=== PATIENT | male | born 1950 ===

== ENCOUNTER 2022-09-10 14:37 | Outpatient (REF) | payer MEDICARE, MEDICAID, SELFPAY ==
--- NOTE | 2022-09-10 16:31 | MHC.AU.HA1 ---
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 He lost his left Amite SP9 hearing aid and is currently using his older Oticon hearing aid as back up. He is hoping to upgrade his hearing aid technology and is interested in bluetooth compatibility to his iPhone. Hearing Aid Prescription: Based on the individual?s shared listening needs, communication environments, dexterity, desire for connectivity, and personal preferences, the following prescription for amplification has been made: Right ear: Make, Model, Color: Oticon Xceed 2 BTE UP Color: Steel [place] Battery Size: 675 Plush Brusher/Slim Tube: Type of Earmold/Dome/CShell/SlimTip: Microsonic M45 hypoallergenic shell Left ear: Left ear prescription to be same as Right Hearing Aid above: Make, Model, Color: Oticon Xceed 2 BTE UP Color: Steel [place] Battery Size: 675 Plush Brusher/Slim Tube: Type of Earmold/Dome/CShell/SlimTip: Microsonic M45 hypoallergenic shell Plan of Care: Patient wishes to purchase hearing aids as prescribed Action Taken/Action Needed:Earmold Impressions Taken Comments: Hearing Instrument Fitting to be scheduled when hearing aids arrive - will initially fit hearing aids with old ear molds to ensure fitting is within six months of hearing test (fitting needs to be scheduled by October 17, 2022). New earmolds will be fit upon arrival at a later date. Primary Diagnosis: H90.3 Bilateral Sensorineural Hearing Loss Signature: Provider: Cain Eaton, [facility]
== END 2022-09-10 14:38 | disposition home or self-care (01) ==
LOC: HO.HAP 14:37
PROVIDERS: Visit Provider Student in an Organized Health Care Education/Training Program
DX: Z46.1 Encounter for fitting and adjustment of hearing aid (principal); H90.3 Sensorineural hearing loss, bilateral
CPT/HCPCS: 92591; V5275

== ENCOUNTER 2022-09-24 09:38 | Outpatient (REF) | payer MEDICARE, MEDICAID, SELFPAY ==
--- NOTE | 2022-09-24 12:11 | MHC.AU.HA2 ---
Hearing Instrument Fitting- Adult- Binaural Date of Visit: 09/24/22 Hearing Instruments Dispensed: Right Ear: Make, Model, Color, Serial Number: Oticon Xceed 2 BTE UP SN: [id number]: Steel [place] Cleaner And Presser Repair Warranty: 10/10/2025 Cleaner And Presser Loss and Damage Warranty: 10/10/2025 [facility] Service Plan: 09/24/2023 Battery Size: 675 Earmold/Dome/CShell/SlimTip: Microsonic M45 hypoallergenic shell Left Ear: Make, Model, Color, Serial Number: Oticon Xceed 2 BTE UP [id number] Color: [place] Cleaner And Presser Repair Warranty: 10/10/2025 Cleaner And Presser Loss and Damage Warranty: 10/10/2025 [facility] Service Plan: 09/24/2023 Battery Size: 675 Earmold/Dome/CShell/SlimTip: Microsonic M45 hypoallergenic shell Summary of Fitting: Ran feedback chef kitchen manager and real ear measurements with old ear molds (still waiting for new molds to arrive). Appropriate match to target through 2 kHz. Decreased right hearing aid slightly due to vibration sensation at real-ear settings. Lv noted improvement in sound quality compared to his old hearing aids. Reviewed care and use. Paired to cell phone. Recommendations: Lv will be contacted to schedule an appointment when his new ear molds arrive; however, he was advised to call sooner if issues with his new hearing aids arise that cannot wait. Diagnosis Code(s): Primary Diagnosis: H90.3 Bilateral Sensorineural Hearing Loss Signature: Provider: Cain Eaton, [facility]
== END 2022-09-24 09:39 | disposition home or self-care (01) ==
LOC: HO.HAP 09:38
PROVIDERS: Visit Provider Student in an Organized Health Care Education/Training Program
DX: Z46.1 Encounter for fitting and adjustment of hearing aid (principal); H90.3 Sensorineural hearing loss, bilateral
CPT/HCPCS: V5011; V5020; V5160; V5261

== ENCOUNTER 2022-10-12 09:16 | Outpatient (REF) | payer MEDICARE, MEDICAID, SELFPAY ==
--- NOTE | 2022-10-12 09:57 | MHC.AU.HA3 ---
Hearing Instrument Follow-Up- Binaural Date of Visit: 10/12/22 Right Ear: Tony, Model, Color, Serial Number: Heriberto Xceed 2 BTE UP SN: [id number]: Steel [place] Junior Network Administrator Repair Warranty: 10/10/2025 Junior Network Administrator Loss and Damage Warranty: 10/10/2025 [facility] Service Plan: 09/24/2023 Battery Size: 675 Earmold/Dome/CShell/SlimTip:Microsonic Medi-padmini clear hypoallergenic shell Dispensed By: [facility] Date of Fittin09/24/2022 Left Ear: Tony, Model, Color, Serial Number: Otshiraz Xceed 2 BTE UP [id number] Color: Steel [place] Junior Network Administrator Repair Warranty: 10/10/2025 Junior Network Administrator Loss and Damage Warranty: 10/10/2025 [facility] Service Plan: 09/24/2023 Battery Size: 675 Earmold/Dome/CShell/SlimTip: Microsonic Medi-padmini clear hypoallergenic shell Dispensed By: [facility] Date of Fittin09/24/2022 Follow-Up Summary: Lv reported that overall his new hearing aids have been great. He is noticing significant improvement compared to his old hearing aids. It is easier for his to get his attention as well as understand conversations. He is also picking up more environmental sounds as well as sounds and voices on television. Data logging showed about 6 hours of use per day. Lv reported he sometimes needs breaks from the hearing aids due to the discomfort of his old ear molds and often likes to relax in silence. Fit new ear molds. Lv reported the ear molds felt smooth and comfortable. No feedback in office. Advised of warranty period if issues arise. Recommendations: Hearing instrument maintenance in 6 months, or sooner if needed. Please contact our clinic with any questions or concerns. Recommendations (Other): Lv will call if issues with the new ear molds arise or in 3-6 months for tubing change. Diagnosis Code(s): Primary Diagnosis: H90.3 Bilateral Sensorineural Hearing Loss Signature: Provider: Cain Eaton, [facility]
== END 2022-10-12 09:17 | disposition home or self-care (01) ==
LOC: HO.HAP 09:16
PROVIDERS: Visit Provider Student in an Organized Health Care Education/Training Program
DX: Z46.1 Encounter for fitting and adjustment of hearing aid (principal); H90.3 Sensorineural hearing loss, bilateral
CPT/HCPCS: V5264

== ENCOUNTER 2023-03-06 10:58 | Outpatient (REF) | payer MEDICARE, MEDICAID, SELFPAY | END 2023-03-06 10:59 | disposition home or self-care (01) | LOC: HO.HAP 10:58 | PROVIDERS: Visit Provider Student in an Organized Health Care Education/Training Program | DX: Z46.1 Encounter for fitting and adjustment of hearing aid (principal); H90.3 Sensorineural hearing loss, bilateral | CPT/HCPCS: V5266 ==

== ENCOUNTER 2023-03-07 10:45 | Outpatient (REF) | payer MEDICARE, MEDICAID, SELFPAY ==
--- NOTE | 2023-03-07 12:34 | MHC.AU.HA3 ---
Hearing Instrument Follow-Up- Binaural Date of Visit: 03/07/23 Right Ear: Tony, Model, Color, Serial Number: Oticon Xceed 2 BTE UP SN: [id number]: Steel [place] Director Sales Training Repair Warranty: 10/10/2025 Director Sales Training Loss and Damage Warranty: 10/10/2025 [facility] Service Plan: 09/24/2023 Battery Size: 675 Earmold/Dome/CShell/SlimTip:Microsonic Medi-padmini clear hypoallergenic shell Dispensed By: [facility] Date of Fittin09/24/2022 Left Ear: Tony, Model, Color, Serial Number: Oticon Xceed 2 BTE UP [id number] Color: [place] Director Sales Training Repair Warranty: 10/10/2025 Director Sales Training Loss and Damage Warranty: 10/10/2025 [facility] Service Plan: 09/24/2023 Battery Size: 675 Earmold/Dome/CShell/SlimTip: Microsonic Medi-padmini clear hypoallergenic shell Dispensed By: [facility] Date of Fittin09/24/2022 Follow-Up Summary: Lv reported that his ear molds are too loose (left greater than right) causing significant feedback. To reduce the feedback, he turns the volume down; however, then he has difficulty hearing. He also reported that the molds are causing his ears to itch and swell. He has been getting some relief by using hydrocortizone cream anti-itch. The molds were ordered in hypoallergenic material and he has had MicroSonic ear molds for many years, so he is unsure of the cause. Impressions taken, bilaterally, without incident[facility] will order with note for most hypoallergenic material. If new molds do not ease itchiness, may need to try [employer]one's hypoallergenic mold. Recommendations: Patient will be contacted when materials have arrived. Diagnosis Code(s): Primary Diagnosis: H90.3 Bilateral Sensorineural Hearing Loss Signature: Provider: Cain Eaton, [facility]
== END 2023-03-07 10:46 | disposition home or self-care (01) ==
LOC: HO.HAP 10:45
PROVIDERS: Visit Provider Student in an Organized Health Care Education/Training Program
DX: Z13.89 Encounter for screening for other disorder (principal)

== ENCOUNTER 2023-03-29 07:59 | Outpatient (REF) | payer MEDICARE, MEDICAID, SELFPAY ==
--- NOTE | 2023-03-29 08:21 | MHC.AU.HA3 ---
Hearing Instrument Follow-Up- Binaural Date of Visit: 03/29/23 Right Ear: Make, Model, Color, Serial Number: Oticon Xceed 2 BTE UP SN: [id number] Color: [place] Director Marketing Repair Warranty: 10/10/2025 Director Marketing Loss and Damage Warranty: 10/10/2025 [facility] Service Plan: 09/24/2023 Battery Size: 675 Earmold/Dome/CShell/SlimTip:Microsonic Traditional Implant Grade full shell Dispensed By: [facility] Date of Fittin09/24/2022 Left Ear: Make, Model, Color, Serial Number: Oticon Xceed 2 BTE UP [id number] Color: [place] Director Marketing Repair Warranty: 10/10/2025 Director Marketing Loss and Damage Warranty: 10/10/2025 [facility] Service Plan: 09/24/2023 Battery Size: 675 Earmold/Dome/CShell/SlimTip: Microsonic Traditional Implant Grade full shell Dispensed By: [facility] Date of Fittin09/24/2022 Follow-Up Summary: Fit new ear molds - Microsonic made molds in implant grade for most hypoallergenic material. Comfortable and no feedback in office. Also decreased settings to automatic manager of health 2 at Lv's request due to frequently turning down the volume. Lv will call as soon as possible if issues with fit and/or itchiness/swelling of ears arise. Lv has old molds to keep as back up. Recommendations: Hearing instrument follow-up or maintenance as needed. Please contact our clinic with any questions or concerns. Patient will call if problems persist. Diagnosis Code(s): Primary Diagnosis: H90.3 Bilateral Sensorineural Hearing Loss Signature: Provider: Cain Eaton, [facility]
== END 2023-03-29 08:00 | disposition home or self-care (01) ==
LOC: HO.HAP 07:59
PROVIDERS: Visit Provider Student in an Organized Health Care Education/Training Program
DX: Z46.1 Encounter for fitting and adjustment of hearing aid (principal); H90.3 Sensorineural hearing loss, bilateral
CPT/HCPCS: V5264

== ENCOUNTER 2023-11-19 13:07 | Outpatient (REF) | payer MEDICARE, MEDICAID, SELFPAY | END 2023-11-19 13:08 | disposition home or self-care (01) | LOC: HO.HAP 13:07 | PROVIDERS: Visit Provider Student in an Organized Health Care Education/Training Program | DX: Z46.1 Encounter for fitting and adjustment of hearing aid (principal); H90.3 Sensorineural hearing loss, bilateral | CPT/HCPCS: 92593; 99499 ==

== ENCOUNTER 2023-12-20 11:07 | Outpatient (REF) | payer MEDICARE, MEDICAID, SELFPAY | END 2023-12-20 11:08 | disposition home or self-care (01) | LOC: HO.HAP 11:07 | PROVIDERS: Visit Provider Student in an Organized Health Care Education/Training Program | DX: Z46.1 Encounter for fitting and adjustment of hearing aid (principal); H90.3 Sensorineural hearing loss, bilateral | CPT/HCPCS: V5264 ==

== ENCOUNTER 2024-08-14 14:20 | Outpatient (REF) | payer MEDICARE, MEDICAID, SELFPAY ==
--- NOTE | 2024-08-14 15:15 | MHC.AU.HA3 ---
Hearing Instrument Follow-Up- Binaural Date of Visit: 08/14/24 Right Ear: Make, Model, Color, Serial Number: Oticon Xceed 2 BTE UP SN: [id number] Color: [place] Box Stacker Repair Warranty: 10/10/2025 Box Stacker Loss and Damage Warranty: 10/10/2025 [facility] Service Plan: 09/24/2023 Battery Size: 675 Watch Caser/Slim Tube: Earmold/Dome/CShell/SlimTip:Microsonic Traditional Implant Grade full shell Type of Wax Guard: Dispensed By: [facility] Date of Fittin09/24/2022 Left Ear: Make, Model, Color, Serial Number: Oticon Xceed 2 BTE UP [id number] Color: [place] Box Stacker Repair Warranty: 10/10/2025 Box Stacker Loss and Damage Warranty: 10/10/2025 [facility] Service Plan: 09/24/2023 Battery Size: 675 Watch Caser/Slim Tube: Earmold/Dome/CShell/SlimTip: Microsonic Traditional Implant Grade full shell Type of Wax Guard: Dispensed By: [facility] Date of Fittin09/24/2022 Follow-Up Summary: Walk in- Lv states right aid is weak, requested tubes from front office spec to see if he could change them and improve balance. I was available so performed tubing change. Listening check seemed ok after cleaning of aids, earmolds, and tube change but patient reports it continues to sound weak. Otoscopy nonremarkable. Offered to send aid out and program loaner. Discussed with and son, opted to return for full sit-down appointment and see if adjustment is possible or aid needs rapid extractor operator service. Went to front to schedule with Lv Batista's usual provider. Recommendations: Recommendations: An additional follow-up was scheduled to monitor progress. Diagnosis Code(s): H90.3: Bilateral sensorineural hearing loss Signature: Provider: Dank Benjamin, [facility]
== END 2024-08-14 14:21 | disposition home or self-care (01) ==
LOC: HO.HAP 14:20
PROVIDERS: Visit Provider Student in an Organized Health Care Education/Training Program
DX: Z46.1 Encounter for fitting and adjustment of hearing aid (principal); H90.3 Sensorineural hearing loss, bilateral
CPT/HCPCS: 92593; 99499

== ENCOUNTER 2025-01-05 13:40 | Outpatient (REF) | payer MEDICARE, MEDICAID, SELFPAY ==
--- NOTE | 2025-01-05 15:46 | MHC.AU.HA3 ---
Hearing Instrument Follow-Up- Binaural Date of Visit: 01/05/25 Right Ear: Make, Model, Color, Serial Number: Otshiraz Xceed 2 BTE UP SN: [id number] Color: Steel [place] Flight Communications Specialist Repair Warranty: 10/10/2025 [employer] Specialist Loss and Damage Warranty: 10/10/2025 [facility] Service Plan: 09/24/2023 Battery Size: 675 Earmold/Dome/CShell/SlimTip:Microsonic Traditional Implant Grade full shell Dispensed By: [facility] Date of Fittin09/24/2022 Left Ear: Make, Model, Color, Serial Number: Otshiraz Xceed 2 BTE UP [id number] Color: [place] Flight Communications Specialist Repair Warranty: 10/10/2025 [employer] Specialist Loss and Damage Warranty: 10/10/2025 [facility] Service Plan: 09/24/2023 Battery Size: 675 Earmold/Dome/CShell/SlimTip: Microsonic Traditional Implant Grade full shell Dispensed By: [facility] Date of Fittin09/24/2022 Follow-Up Summary: Accompanied by . Ongoing issues since end of last year. Reportedly difficulty hearing, right GAY sounds weak, especially when streaming from cellphone, left EM feels loose. Tubing extremely hard. Question if hardened tube pulling on EM. Cleaned both HAs/EMs. Replaced tubing. Vacuumed microphones. Ran through dehumidifier. Listening check demonstrated HAs amplifying clearly. Noticeable improvement in fit of EM and sound quality after cleaning and tubing change. However, right still weak. Increased both HAs to AM 3 and increased overall gain in right a bit more. Reportedly more balanced and better overall clarity. Made sound quality for streaming in right GAY 'louder' and 'prieto.' Turned Power Catherine to Low for both HAs. Discussed need for periodic tubing changes. Also had order from PCP, scheduled updated hearing test. Recommendations: Hearing instrument follow-up or maintenance as needed. Please contact our clinic with any questions or concerns. Diagnosis Code(s): Primary Diagnosis: H90.3 Bilateral Sensorineural Hearing Loss Signature: Provider: Cain Eaton, [facility]
== END 2025-01-05 13:41 | disposition home or self-care (01) ==
LOC: HO.HAP 13:40
PROVIDERS: Visit Provider Student in an Organized Health Care Education/Training Program
DX: Z46.1 Encounter for fitting and adjustment of hearing aid (principal); H90.3 Sensorineural hearing loss, bilateral
CPT/HCPCS: 92593; 99499; V5266

== ENCOUNTER 2025-04-08 13:19 | Outpatient (REF) | payer MEDICARE, MEDICAID, SELFPAY ==
--- OUTSIDE RECORDS SUMMARY | 2025-04-08 14:12 | XMS_ITS | Clinical Summary ---
Author Organization [address] [facility] Address [address] [place] [address] Phone Care Team Providers Care Ged Preparation Teacher Name Role Phone Kolby Miller MD Primary Care Provider [phone] Allergies Active Allergy Reactions Criticality Noted Date Comments House Dust Mite 03/24/2021 Penicillins 02/08/2021 Medications cholecalciferol (VITAMIN D-3) 25 mcg (1,000 unit) tablet Take 1 tablet (1,000 Units total) by mouth. Active miscellaneous medical supply misc CPAP HISTORICAL (HISTORICAL CPAP)- Maintenance, 02/04/19 10:38:01 EDT, Compound 9 Active FLUoxetine (PROzac) 20 mg capsule Take 3 capsules (60 mg total) by mouth 1 (one) time each day. 4 Active ibuprofen (ADVIL,MOTRIN) 200 mg tablet Take 1 tablet (200 mg total) by mouth. Active tadalafiL (CIALIS) 20 mg tablet Start with 1/2 tablet po 30-45 mins prior to sexual activity. May increase to 20mg. Max 1 dose/day. 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 Encounters Date Type Department Care Team Description 03/24/2025 9:00 AM EDT Office Visit Internal Medicine - [place] [address] [facility] [address] [place] [address] Kolby Miller MD Hairy cell leukemia, in remission ([facility] V24, [facility] V28) (Primary Dx); Cirrhosis of liver without ascites, unspecified hepatic cirrhosis type ([facility]/HCC V24, [facility] V28); Current mild episode of major depressive disorder, unspecified whether recurrent ([facility] V24) 02/09/2025 Telephone Pulmonolgy - [place] [address] [facility] [address] [place] [address] Quan Mclain MD office notes from Last 3 Months Immunizations Name Administration Dates Next Due Influenza trivalent, 0.5mL (Fluad) 65yo and olde r 06/19/2021,06/24/2018 Pfizer SARS-CoV-2 COVID-19, mRNA, LNP-S, preservative free 01/10/2022 Pneumococcal conjugate 13 va lent (Prevnar 13, PCV13) 2mo and older 05/26/2020 Pneumococcal conjugate 20 va lent (Prevnar 20, PCV 20) 2mo and older 10/31/2023 Td Tetanus diptheria (Tdvax) 7yo and older 10/30 Surgical History Surgery Date Site/Laterality Comments OTHER SURGICAL HISTORY Bilateral PROCEDURE: ME RPR RECRT INGUINAL HERNIA ANY AGE REDUCIBLE; COMMENT: with revision OTHER SURGICAL HISTORY 11/2023 PROCEDURE: 1ST STAGE CHEMOSURGERY (MOHS') Medical History Medical History Date Comments Thyroid condition 02/01/2021 DX:Thyroid con dition; COMMENT: Patient reports being on Synthroid for years following radiation exposure in childhood; was given option to discontinue...? 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, [facility] V28) 02/01/2021 DX:Hairy cell leukemia (HCC) ; COMMENT: 2000 - per patient's Generalized anxiety disorder 02/08/2021 DX: Generalized anxiety disorder Deafness 02/01/2021 DX:Deafness Thrombocytopenia ([facility] V24) D X:Thrombocytopenia (HCC) Elevated liver enzymes DX:Elevat ed liver enzymes Hyperlipidemia DX:Hyperlipidemi a Depressive disorder DX:Depressiv e disorder Hairy cell leukemia ([facility] V24, [facility] V28) DX:Hairy cell leukemia (HCC) Epigastric discomfort DX:Epigast monica discomfort Family History Medical History Relation Name Comments Other: congenital hearing loss Brother 1 Asthma Daughter 1 Heart attack Father CABG, stroke Other: work-related cancer Maternal Grandfather Breast cancer Mother multiple CVA, HTN; ?50s, unilateral Heart attack Paternal Grandfather Breast cancer Sister 1 x 1 unilateral Relation Name Status Comments Brother 1 Alive Brother 2 Alive Daughter 1 Alive Daughter 2 Alive Daughter 3 Alive Father Maternal Grandfather Maternal Grandmother Mother Paternal Grandfather Paternal Grandmother Sister 1 x 1 Alive Sister 2 Alive Son 1 Alive Son 2 Alive Social History Tobacco Use Types Packs/Day Years Used Date Smoking Tobacco: Never Smokeless Tobacco: Never Alcohol Use Standard Drinks/Week Comments Yes 1 (1 standard drink = 0.6 oz pur e alcohol) Sex and Gender Information Value Date Recorded Sex Assigned at Not on file Legal Sex Male 6:26 AM EST Gender Identity Not on file Sexual Orientation Not on file Obstetrics History Last Filed Vital Signs Vital Sign Reading Time Taken Comments Blood Pressure 98/54 03/24/2025 8:55 AM EDT Pulse 66 03/24/2025 8:55 AM EDT Temperature - - Respiratory Rate - - Oxygen Saturation 99% 03/24/2025 8:55 AM EDT Inhaled Oxygen Concentration - - Weight 82.6 kg (182 lb) 03/24/2025 8:55 AM EDT Height 175.3 cm (5' 9 ) 03/24/2025 8:55 AM EDT Body Mass Index 26.88 03/24/2025 8:55 AM EDT Plan of Treatment Upcoming Encounters Date Type Department Care Team (Late st Contact Info) Description 09/16/2025 11:00 AM EST Office Visit Internal Medicine - [place] [address] [facility] [address] [place] [address] Kolby Miller MD [address] [facility] [address] [place] [address] Health Maintenance Due Date Last Done Comments Hepatitis A Vaccines (1 of 2 - Risk 2-dose series) 1971 Zoster Vaccines (1 of 2) 1971 Hepatitis B Vaccines (1 of 3 - Risk 3-dose series) 2012 RSV Immunization Adult Patients (1 - Risk 60-74 years 1-dose series) 2012 Colorectal Cancer Screening: Colonoscopy 07/29/2022 Falls Risk Assessment 07/29/2022 Social Influencers of Health Screening 07/29/2022 COVID-19 Vaccine ( season) 2024 01/10/2022, 06/19/2021, 12/14/2020, Additional history exists Depression Screening 08/26/2024 10/31/2023 Medicare Annual Wellness Visit 10/30/2024 10/31/2023 Influenza Vaccine (#1) 2025 , 06/19/2021, 06/24/2018, Additional history exists Hypertension/CHF/CAD Annual BMP Blood Test 02/01/2026 02/01/2025, 08/05/2024, 07/06/2024, Additional history exists Cholesterol Screening (Lipid Panel) 02/01/2030 02/01/2025, 02/05/2024, 02/05/2024 DTaP,Tdap,and Td Vaccines (2 - Td or Tdap) 10/30/2033 10/31/2023 Hepatitis C Screening Completed 02/21/2022 Pneumococcal Vaccine: 50+ Years Completed 10/31/2023, 05/26/2020 HIB Vaccines Aged Out No longer eligi ble based on patient's age to complete this topic HPV Vaccines Aged Out No longer eligi ble based on patient's age to complete this topic IPV Vaccines Aged Out No longer eligi ble based on patient's age to complete this topic MMR Vaccines Aged Out No longer eligi ble based on patient's age to complete this topic Meningococcal ACWY Vaccine Aged Out N o longer eligible based on patient's age to complete this topic Meningococcal B Vaccine Aged Out No l onger eligible based on patient's age to complete this topic RSV Immunization Patients Under 20 months Aged Out No longer eligible based on patient's age to complete this topic Varicella Vaccines Aged Out No longer eligible based on patient's age to complete this topic Procedures Procedure Name Priority Date/Time Associated Diagnosis Comments ANNUAL BMP BLOOD TEST Routine 02/05/2024 LIPID PANEL Routine 02/05/2024 DEPRESSION SCREENING Routine 10/31/2023 HEPATITIS C SCREENING Routine 02/21/2022 from Last 3 Months or Most Recently Relevant to Health Maintenance Results * (ABNORMAL) Lipid panel (02/05/2024) Pathologist [facility] LDL/HDL Ratio 3 0 - 4 Triglycerides 68 0 - 150 mg/dL Cholesterol 186 0 - 200 mg/dL HDL 72 >=40 mg/dL LDL Cholesterol 101(A) 0 - 100 mg/dL Blood Venous blood specimen / Unknown Historical Provider LAB BLOOD ORDERABLES Zofia l Result * Depression Screening (10/31/2023) Pathologist [facility] Depression Screening abstracted Historical Provider HEALTH MAINTENANCE Final Result * Hepatitis C Screening (02/21/2022) Hepatitis C Screening abstracted Historical Provider HEALTH MAINTENANCE Final Result from Last 3 Months or Most Recently Relevant to Health Maintenance Insurance MEDICARE MEDICAID - [place] Care Teams Ged Preparation Teacher Relationship Specialty Start Date End Date Kolby Miller MD [address] [facility] [address] [place] [address] PCP - General 02/19/24
--- OUTSIDE RECORDS SUMMARY | 2025-04-08 14:12 | XMS_ITS ---
Author Organization [facility] Address [address] [place] [address] Phone Care Team Providers Care Marine Fire Fighter Name Role Phone Khang Preston MD, PhD Unavailable [phone] Marlen Herron RN Unavailable [email or web address] Quan Mclain MD Unavailable [phone] Kolby Miller MD Primary Care Provider [phone] Maura Rodriguez MD Unavailable Active Problems Patient Care Coordination No te Formatting of this note migh t be different from the original. Pt is DEAF, daughter comes to all areas with him to help communicate, including Y2 UPDATE 04/18/2022--pt now has hearing aids, able to read lips, does not use sign language. 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 Past Treatment and Therapy Plans TREATMENT PLAN Plan Name Start Date Discontinue Date Treatment Medications Discontinue Reason Plan Provider Cycles CLADRIBINE BOLUS/RITUXIM AB 2 02/09/2025 claDRIbine (LEUSTATIN) infusionriTUXimab (RITUXAN) IVPB in NS 1 mg/mLriTUXimab (RITUXAN) IVPB 250 mL (250 mg - 1000 mg) (QS Base) a. Therapy Complete Khang Preston MD, PhD 2 of 2 cycles started
--- NOTE | 2025-04-08 17:13 | MHC.AU.HA3 ---
Hearing Instrument Follow-Up- Binaural Date of Visit: 04/08/25 Right Ear: Make, Model, Color, Serial Number: Oticon Xceed 2 BTE UP SN: [id number] Color: [employer] [place] [employer] Repair Warranty: 10/10/2025 [employer] Loss and Damage Warranty: 10/10/2025 [facility] Service Plan: 09/24/2023 Battery Size: 675 [place]/Dome/CShell/SlimTip:Microsonic Traditional Implant Grade full shell Dispensed By: [facility] Date of Fittin09/24/2022 Left Ear: Make, Model, Color, Serial Number: Oticon Xceed 2 BTE UP [id number] Color: [employer] [place] [employer] Repair Warranty: 10/10/2025 [employer] Loss and Damage Warranty: 10/10/2025 [facility] Service Plan: 09/24/2023 Battery Size: 675 Earmold/Dome/CShell/SlimTip: Microsonic Traditional Implant Grade full shell Dispensed By: [facility] Date of Fittin09/24/2022 Follow-Up Summary: Accompanied by , Yadira. Updated hearing test - see audio. Hearing stable. Previously reported right GAY weak, today reported left GAY weak, difficulty hearing when on left side. EMs also reportedly not fitting properly, likely due to hardened tubes again. Noticeable moisture and wax build up in tubes. Cleaned HAs (2). Cleaned EMs (2). Replaced tubing (2), using DriTubes. Vacuumed microphones. Ran through dehumidifier. Listening check demonstrated HAs amplifying clearly. Lv noticed significant improvement in office, louder, more balanced sound, better fit of EMs. Did not want/need programming adjustments following tubing change. Recommendations: Hearing instrument follow-up or maintenance as needed. Please contact our clinic with any questions or concerns. Diagnosis Code(s): Primary Diagnosis: H90.3 Bilateral Sensorineural Hearing Loss Signature: Provider: Cain Eaton, [facility]
== END 2025-04-08 13:20 | disposition home or self-care (01) ==
LOC: HO.SH 13:19
PROVIDERS: Visit Provider Internal Medicine
DX: Z01.118 Encounter for examination of ears and hearing with other abnormal findings (principal); H90.3 Sensorineural hearing loss, bilateral
CPT/HCPCS: 92552; 92556; 92593; 99499